=== PATIENT | female | born 1960 | race Caucasian/White ===

== ENCOUNTER 2018-12-02 08:54 | Emergency (ER) | payer MEDICAID, OTHER ==
[2018-12-02] MEDS: METHYLPREDNISOLONE 125 MG INJ IM (09:52)
[2018-12-02] MEDS: KETOROLAC 30 MG INJ IM (09:52)
== END 2018-12-02 10:05 | disposition home or self-care (01) ==
LOC: FTE 10:05
DX: M25.561 Pain in right knee (principal); E11.9 Type 2 diabetes mellitus without complications
CPT/HCPCS: 96372; 99284-25